=== PATIENT | male | born 1965 | race African-American/Black ===

== ENCOUNTER 2020-12-23 16:22 | Inpatient (IN) | payer MEDICAID ==
[~2020-12-23] VITALS: Ht 172.7 cm; Wt 113.4 kg
[2020-12-23] MEDS ORDERED: SODIUM CHLORIDE 0.9% 1,000 ML IV ONE (16:45)
[2020-12-23] MEDS ORDERED: FENTANYL CITRATE/PF 50MCG/ML 2ML VIAL IV ONE (16:45)
[2020-12-23 17:42] LABS: BASOPHILS % 0.6 % (0.0-2.0); EOSINOPHILS % 1.5 % (0.0-5.0); HEMATOCRIT. 49.3 % (42.0-52.0); HEMOGLOBIN. 16.3 g/dL (14.0-18.0); LYMPHOCYTES % 18.6 % (20.0-50.0); MEAN CORPUSCULAR HEMOGLOBIN 29.3 pg (28.0-32.0); MEAN CORPUSCULAR VOLUME 88.5 fL (80.0-94.0); MEAN PLATELET VOLUME 8.9 fl (7.4-10.4); MONOCYTES % 9.3 % (2.0-8.0); PLATELET 311 x1000/uL (130-400); RED BLOOD CELL COUNT 5.58 mill/uL (4.7-6.1); RED CELL DISTRIBUTION WIDTH 12.4 % (11.6-14.6)
[2020-12-23 17:48] LABS: CHLORIDE 98 mEq/L (98-107)
[2020-12-23] MEDS ORDERED: DEXTROSE 50% WATER 50ML SYRINGE IV NR (18:15)
[2020-12-23] MEDS ORDERED: FUROSEMIDE 100MG/10ML VIAL IV NR (18:15)
[2020-12-23] MEDS ORDERED: SODIUM BICARBONATE 8.4% 1 MEQ/ML 50ML SYR IV NR (18:15)
[2020-12-23] MEDS ORDERED: INSULIN REGULAR (HUMULIN R) 300UNITS/3ML VIAL IV NR (18:30)
[2020-12-23] MEDS: SODIUM POLYSTYRENE SULFONATE 15 G/60 ML BOT PO NR ×2 (18:48→18:55)
[2020-12-23 22:00] VITALS: BP_SYST 129; BP_DIAS 80; BP_DIAS 90
[2020-12-23] MEDS ORDERED: PANT40TA51 PO (22:13)
[2020-12-23] MEDS ORDERED: METO-539 PO (22:13)
[2020-12-23] MEDS ORDERED: ATOR40TA70 PO (22:13)
[2020-12-23] MEDS ORDERED: METF-416 PO (22:13)
[2020-12-23] MEDS ORDERED: LISI10TA26 PO (22:13)
[2020-12-23] MEDS ORDERED: DEXTROSE 50% WATER 50ML SYRINGE IV PRN (22:15)
[2020-12-23] MEDS: SODIUM CHLORIDE 0.9% 1,000 ML IV SCH (22:32)
[2020-12-23] MEDS: BLOOD SUGAR DIAGNOSTIC STRIP TEST SCH (22:32)
[2020-12-23] MEDS: INSULIN LISPRO 100 UNITS/ML SUBCUT SCH (22:38)
[2020-12-23] MEDS ORDERED: ENOXAPARIN 40MG/0.4ML SYR SUBCUT SCH (23:00)
[2020-12-23] MEDS ORDERED: INSULIN GLARGINE UD 100 UNITS/ML SYR SUBCUT SCH (23:30)
[2020-12-24] VITALS: BP 112/70
[2020-12-24 05:42] VITALS: BP 109/67
[2020-12-24 06:11] LABS: HEMATOCRIT 45.6 % (42.0-52.0); MEAN CORPUSCULAR HEMOGLOBIN 29.3 pg (28.0-32.0); MEAN CORPUSCULAR VOLUME 88.9 fL (80.0-94.0); PLATELET 280 x1000/uL (130-400); RED BLOOD CELL COUNT 5.13 mill/uL (4.7-6.1); RED CELL DISTRIBUTION WIDTH 12.8 % (11.6-14.6)
[2020-12-24] MEDS: BLOOD SUGAR DIAGNOSTIC STRIP TEST SCH ×4 (06:31→20:33)
[2020-12-24 07:35] LABS: CHLORIDE 99 mEq/L (98-107)
[2020-12-24 07:44] LABS: LDL CHOLESTEROL 106 mg/dL (5-100)
[2020-12-24 07:47] LABS: HDL CHOLESTEROL 29 mg/dL (40-59)
[2020-12-24 08:00] VITALS: BP 128/89
[2020-12-24] MEDS: INSULIN LISPRO 100 UNITS/ML SUBCUT SCH ×4 (08:44→22:13)
[2020-12-24] MEDS: METOPROLOL TARTRATE 50MG TABLET PO SCH ×2 (08:46→22:04)
[2020-12-24] MEDS: PANTOPRAZOLE 40MG DR TABLET PO SCH (08:46)
[2020-12-24] MEDS: SODIUM CHLORIDE 0.9% 1,000 ML IV SCH ×2 (08:49→19:00)
[2020-12-24] MEDS: INSULIN GLARGINE UD 100 UNITS/ML SYR SUBCUT SCH ×2 (11:40→22:11)
[2020-12-24 12:00] VITALS: BP 133/76
[2020-12-24 16:00] VITALS: BP 125/62
[2020-12-24 19:02] LABS: CLARITY URINE CLEAR (CLEAR); COLOR URINE YELLOW (YELLOW); KETONES URINE NEGATIVE (NEGATIVE); LEUKOCYTE ESTERASE URINE NEGATIVE (NEGATIVE); NITRITE URINE NEGATIVE (NEGATIVE); OCCULT BLOOD URINE NEGATIVE (NEGATIVE); PROTEIN URINE NEGATIVE (NEGATIVE)
[2020-12-24 19:11] LABS: *AMPHETAMINES SCREEN URINE NEGATIVE (NEGATIVE); *BARBITURATES SCREEN URINE NEGATIVE (NEGATIVE); *BENZODIAZEPINES SCREEN URINE NEGATIVE (NEGATIVE); *COCAINE SCREEN URINE NEGATIVE (NEGATIVE); METHADONE URINE SCREEN NEGATIVE (NEGATIVE)
[2020-12-24 19:13] LABS: CANNABINOID URINE SCREEN NEGATIVE (NEGATIVE); OPIATES URINE SCREEN NEGATIVE (NEGATIVE); PHENCYCLIDINE URINE SCREEN NEGATIVE (NEGATIVE)
[2020-12-24 20:00] VITALS: BP 123/88
[2020-12-24] MEDS: ATORVASTATIN CALCIUM 40MG TABLET PO SCH (22:04)
[2020-12-24] MEDS: ENOXAPARIN 30MG/0.3ML SYR SUBCUT SCH (22:05)
[2020-12-24] MEDS ORDERED: ACETAMINOPHEN 325MG TABLET PO PRN (23:30)
[2020-12-25] VITALS: BP 124/49
[2020-12-25 04:00] VITALS: BP 104/61
[2020-12-25] MEDS: SODIUM CHLORIDE 0.9% 1,000 ML IV SCH (04:15)
[2020-12-25] MEDS: BLOOD SUGAR DIAGNOSTIC STRIP TEST SCH ×4 (07:20→21:00)
[2020-12-25 08:00] VITALS: BP 158/74
[2020-12-25] MEDS: INSULIN LISPRO 100 UNITS/ML SUBCUT SCH ×3 (08:42→17:59)
[2020-12-25] MEDS: INSULIN GLARGINE UD 100 UNITS/ML SYR SUBCUT SCH (09:28)
[2020-12-25] MEDS: ENOXAPARIN 30MG/0.3ML SYR SUBCUT SCH (09:30)
[2020-12-25] MEDS: METOPROLOL TARTRATE 50MG TABLET PO SCH (09:30)
[2020-12-25] MEDS: PANTOPRAZOLE 40MG DR TABLET PO SCH (09:30)
[2020-12-25 12:00] VITALS: BP 123/78
[2020-12-25] MEDS ORDERED: INSU100I28 SQ (12:41)
[2020-12-25 16:00] VITALS: BP 114/72
[2020-12-25 20:00] VITALS: BP 130/80
[2020-12-25] MEDS ORDERED: IOHEXOL-300 100 ML BOTTLE ONE (22:17)
[2020-12-26] VITALS: BP 121/79
[2020-12-26] MEDS: INSULIN LISPRO 100 UNITS/ML SUBCUT SCH ×3 (00:08→12:45)
[2020-12-26] MEDS: ATORVASTATIN CALCIUM 40MG TABLET PO SCH (00:09)
[2020-12-26] MEDS: ENOXAPARIN 30MG/0.3ML SYR SUBCUT SCH ×2 (00:09→08:35)
[2020-12-26] MEDS: FAMOTIDINE 20MG TABLET PO SCH ×2 (00:09→08:33)
[2020-12-26] MEDS: INSULIN GLARGINE UD 100 UNITS/ML SYR SUBCUT SCH ×2 (00:09→09:51)
[2020-12-26] MEDS: METOPROLOL TARTRATE 50MG TABLET PO SCH ×2 (00:13→08:34)
[2020-12-26] MEDS: SODIUM CHLORIDE 0.9% 1,000 ML IV SCH ×2 (00:15→10:15)
[2020-12-26 04:00] VITALS: BP 123/73
[2020-12-26] MEDS: BLOOD SUGAR DIAGNOSTIC STRIP TEST SCH ×2 (07:28→12:20)
[2020-12-26 07:32] VITALS: BP 146/98
[2020-12-26 10:02] VITALS: BP 146/98
[2020-12-26 12:03] VITALS: BP 156/78
== END 2020-12-26 12:55 | disposition home or self-care (01) | DRG 48 ==
LOC: ER 17:03 → 6WST 18:43 → EDBEDREQ 18:56 → ENRESERV 19:47
PROVIDERS: ADMIT Internal Medicine; ATTEND Internal Medicine
DX: G90.8 Other disorders of autonomic nervous system (principal); R57.9 Shock, unspecified; N17.0 Acute kidney failure with tubular necrosis; E11.65 Type 2 diabetes mellitus with hyperglycemia; E66.01 Morbid (severe) obesity due to excess calories; R16.0 Hepatomegaly, not elsewhere classified; E87.1 Hypo-osmolality and hyponatremia; I25.118 Atherosclerotic heart disease of native coronary artery with other forms of angina pectoris; J44.9 Chronic obstructive pulmonary disease, unspecified; E87.5 Hyperkalemia; E78.5 Hyperlipidemia, unspecified; K76.9 Liver disease, unspecified; F17.210 Nicotine dependence, cigarettes, uncomplicated; I35.0 Nonrheumatic aortic (valve) stenosis; I11.0 Hypertensive heart disease with heart failure; I50.9 Heart failure, unspecified; Z68.38 Body mass index [BMI] 38.0-38.9, adult
CPT/HCPCS: 36415; 71045; 74176; 74177; 76700; 80048; 80053; 80061; 80305; 81003; 82962; 83036; 83605; 83880; 84443; 84484; 85025; 85027; 93005; 93306; 93880; 99291; C1893; J1650; J1815; J1940; J3010; J3490; J7030; Q9967